=== PATIENT | female | born 1970 | race Caucasian/White ===

== ENCOUNTER 2017-08-14 15:13 | Emergency (ER) | payer OTHER ==
[~2017-08-14] VITALS: Ht 162.6 cm; Wt 51.3 kg
[~2017-08-14 15:13] MED LIST: ALDACTONE25 MG PO; CLOBETASOL PROP15 GM TOP; FERROUS SULFAT325 M2 PO; FERROUS SULFAT325 M3 PO; FUROSEMIDE20 M1 PO; HYDROXYZINE HCL25 M3 PO; LACTULOSE10 GM/153 PO; LEVOTHYROXINE100 MC1 PO; LEVOTHYROXINE125 MCG PO; LEVOTHYROXINE75 MCG PO; MAGNESIUM OXID400 M1 PO; PROPRANOLOL HCL10 M1 PO; SPIRONOLACTONE50 M1 PO; SYNTHROID100 MCG PO; TYLENOL EXTRA500 M2 PO; VITAMIN D31000 UNI2 PO
[2017-08-14 15:25] VITALS: BP 112/82
--- NOTE | 2017-08-14 17:20 | ED ANIMAL BITE/WOUND CHECK ---
History of Present Illness General Chief Complaint: Lower Extremity Injury Stated Complaint: R KNEE PAIN, HERE LAST WK FOR SAME Source: patient Exam Limitations: no limitations Vital Signs & Intake/Output Vital Signs & Intake/Output Vital Signs Date Time Temp Pulse Resp B/P B/P Pulse O2 O2 Flow FiO2 Mean Ox Delivery Rate 08/14 1525 97.3 108 16 112/82 96 Room Air Allergies Coded Allergies: NO KNOWN ALLERGIES (05/26/11) Reconcile Medications Amoxicillin 500 MG TABLET 1 TAB PO TID CELLULITIS Cholecalciferol (Vitamin D3) 1,000 UNIT TABLET 1 TAB PO DAILY VITAMIN SUPPORT (Reported) Clobetasol Propionate 0.05 % CREAM..G. 1 NNAMDI TOP BID PSORIASIS (Reported) apply to affected area(s) Ferrous Sulfate 325 MG (65 MG IRON) TABLET 1 TAB PO TID SUPPLEMENT (Reported) Furosemide 20 MG TABLET 1 TAB PO DAILY DIURETIC (Reported) Hydroxyzine HCl (hydrOXYzine HCl) 25 MG TABLET 1 TAB PO DAILY ITCHING ( Reported) Lactulose 10 GRAM/15 ML SOLUTION 30 ML PO TID LIVER (Reported) Levothyroxine Sodium 125 MCG TABLET 1 TAB PO DAILY THYROID (Reported) Magnesium Oxide 400 MG TABLET 1 TAB PO DAILY SUPPLEMENT (Reported) Propranolol HCl 10 MG TABLET 1 TAB PO TID BP (Reported) Spironolactone 50 MG TABLET 2 TAB PO DAILY DIURETIC (Reported) Spironolactone (Aldactone) 25 MG TABLET 1 TAB PO DAILY CIRRHOSIS Sulfamethoxazole/Trimethoprim (Bactrim Ds Tablet) 800 MG-160 MG TABLET 1 TAB PO BID CELLULITIS Triage Note: PT TO ER FOR SUTURE REMOVAL TO RIGHT KNEE. PT HAS KNEE IMMOBILIZER IN PLACE S/P FALL. STILL EXPERIENCING KNEE PAIN. Triage Nurses Notes Reviewed? yes Onset: Last week Duration: day(s): (10 DAYS) Timing: no prior history Injury Environment: home Is Injury an Animal Bite? No Severity: mild No Modifying Factors: none HPI: Patient is a 47 old female here for suture removal. Denies any fevers chills. Denies any discharge from the wound. Denies any increased pain or swelling. Reports that everything has been healing up well. She has been using the knee immobilizer to help. Denies any nausea vomiting fevers chills chest pain or shortness of breath. (Keila ROBERT,Mildred) Past History Travel History Traveled to [place] past 21 day No Medical History Any Pertinent Medical History? 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 FATHER (unknown). Hx Contributory? No (Mildred Lynn) Review of Systems Review of Systems Constitutional: Reports: no symptoms. Comments Review of systems: See HPI, All other systems negative. Constitutional, no chills fever or weight loss HEENT: No visual changes no sore throat no congestion Cardiovascular: No chest pain ,palpitation Skin, no jaundice no rashes Respiratory: No dyspnea cough sputum or hemoptysis GI: No nausea no vomiting Muscle skeletal: no back pain, no neck pain, Neurologic: No numbness no confusion Psych: No stress anxiety Immunology: No splenectomy or history of AIDS (Mildred Lynn) Physical Exam Physical Exam General Appearance: well developed/nourished, no apparent distress, alert, awake , comfortable Comments: Well-developed well-nourished person in no acute distress HEENT: Atraumatic, normocephalic Neck: Normal inspection Cardiovascular: Pedal pulses are 2+ bilaterally. Respiratory: No respiratory distress. Extremity: No edema, no calf tenderness to palpation, normal and equal pulses. Neuro: Alert oriented x3, motor sensory normal Skin: Horizontal laceration, well-appearing approximately 6 cm over the RIGHT patella. Mild surrounding erythema, no purulent drainage. Nontender to palpation. Patient does have chronic psoriasis on the right lower extremity diffusely. Psych: Mood and affect is normal, memory and judgment is normal. (Mildred Lynn) Progress Differential Diagnosis: cellulitis, WOUND CHECK, SUTURE REMOVAL Plan of Care: Sutures removed without difficulty. Sterile dressing placed. Patient educated on signs and symptoms return. Patient started on antibiotics. (Mildred Lynn) Departure Departure Time of Disposition: 1718 Disposition: HOME OR SELF CARE Condition: Stable Clinical Impression Primary Impression: Visit for suture removal Secondary Impressions: Cellulitis Qualifiers: Site of cellulitis: extremity Site of cellulitis of extremity: lower extremity Laterality: right Qualified Code: L03.115 - Cellulitis of right lower limb Referrals: Don MOON,Sonny Hidalgo (PCP/Family) Additional Instructions: Return for worsening symptoms or concerns. Keep wound clean. Take Motrin or Tylenol [id number] for any aches or pains. Take antibiotics as prescribed. Departure Forms: Customer Survey General Discharge Information Prescriptions: Current Visit Scripts Amoxicillin 1 TAB PO TID #30 TAB Sulfamethoxazole/Trimethoprim (Bactrim Ds Tablet) 1 TAB PO BID #20 TAB (Mildred Lynn) PA/REEL SLITTER Co-Sign Statement Statement: ED Attending supervision documentation- [] I saw and evaluated the patient. I have also reviewed all the pertinent lab results and diagnostic results. I agree with the findings and the plan of care as documented in the PA's/REEL SLITTER's documentation. [x] I have reviewed the ED Record and agree with the PA's/REEL SLITTER's documentation. [] Additions or exceptions (if any) to the PAs/REEL SLITTER's note and plan are summarized below: [] (Sharan Omalley DO) ED Attending Observation Initial Observation Note: I have seen and personally examined BILL PENA on 08/20/17 at 0802. I agree with the current emergency department documentation. The disposition (admission or discharge) is uncertain at this time, she needs a period of observation for the following reason(s): The ED Nurse caring for this patient has been personally informed as to what the patient is being observed for. (Mildred Lynn)
[2017-08-14] MEDS ORDERED: AMOXICILLIN500 M3 PO (17:32)
[2017-08-14] MEDS ORDERED: BACTRIM DS TAB1 EACH PO (17:32)
== END 2017-08-14 17:35 ==
LOC: ERH 15:13
DX: Z48.02 Encounter for removal of sutures (principal)